=== PATIENT | male | born 1965 | race Caucasian/White ===

== ENCOUNTER 2016-06-24 08:08 | Emergency (ER) | payer OTHER ==
[~2016-06-24] VITALS: Ht 180.3 cm; Wt 83.9 kg
[2016-06-24 09:41] LABS: ABSOLUTE BASOPHIL COUNT 0 /CUMM (0.0-0.2); ABSOLUTE EOSINOPHIL COUNT 0.1 /CUMM (0.0-0.7); ABSOLUTE GRANULOCYTE CT 4.8 /CUMM (1.4-6.5); ABSOLUTE LYMPH COUNT 1.2 /CUMM (1.2-3.4); ABSOLUTE MONOCYTE COUNT 0.5 /CUMM (0.10-0.60); BASOPHIL % 0.4 % (0.0-2.0); EOSINOPHIL % 1.9 % (0-5); GRANULOCYTE % 71.9 % (42.2-75.2); HEMATOCRIT 41.6 % (42-52); MEAN CORPUSCULAR HGB 31.8 PG (27.0-31.0); MEAN CORPUSCULAR HGB CONC 33.5 G/DL (33.0-37.0); MEAN CORPUSCULAR VOLUME 94.9 FL (80.0-94.0); MEAN PLATELET VOLUME 7.2 FL (7.4-10.4); PLATELET COUNT 390 /CUMM (130-400); RBC DISTRIBUTION WIDTH 12.8 % (11.5-14.5); RED BLOOD CELL CT 4.38 /CUMM (4.70-6.10); WHITE BLOOD CELL COUNT 6.7 /CUMM (4.8-10.8)
[2016-06-24] MEDS ORDERED: ATORVASTATIN CA10 M1 PO (09:51)
[2016-06-24] MEDS ORDERED: VALACYCLOVIR1000 MG PO (09:52)
[2016-06-24] MEDS ORDERED: ANDROGEL75 G1 TOP (09:52)
[2016-06-24] MEDS ORDERED: DESCOVY 200-251 EACH PO (09:53)
[2016-06-24] MEDS ORDERED: TIVICAY50 M1 PO (09:53)
[2016-06-24] MEDS ORDERED: DILANTIN100 M1 PO (09:53)
[2016-06-24] MEDS ORDERED: KETOPROFEN200 MG PO (09:54)
[2016-06-24] MEDS ORDERED: ASPIRIN81 M4 PO (09:54)
[2016-06-24] MEDS ORDERED: MOXIFLOXACIN H400 M2 PO (09:55)
[2016-06-24] MEDS ORDERED: OXANDROLONE10 MG PO (09:55)
--- NOTE | 2016-06-24 10:20 | ED NEURO DEFICIT/STROKE ---
See Addendum History of Present Illness General Chief Complaint: Neuro Symptoms/ Deficit Stated Complaint: RT SIDED NUMBNESS Source: patient, family, old records Exam Limitations: no limitations Vital Signs & Intake/Output Vital Signs & Intake/Output Vital Signs Date Time Temp Pulse Resp B/P Pulse O2 O2 Flow FiO2 Ox Delivery Rate 06/24 1216 97.3 76 18 143/83 93 Room Air 06/24 0811 97.8 101 16 122/80 94 Room Air Allergies Coded Allergies: NO KNOWN ALLERGIES (05/09/12) Reconcile Medications Aspirin (Aspirin*) 81 MG TAB.CHEW 1 TAB PO DAILY HEART HEALTH (Reported) Atorvastatin Calcium 10 MG TABLET 1 TAB PO DAILY CHOLESTEROL (Reported) Dolutegravir Sodium (Tivicay) 50 MG TABLET 1 TAB PO DAILY HIV (Reported) Emtricitabine/Tenofov Alafenam (Descovy 200-25 MG Tablet) 200 MG-25 MG TABLET 1 TAB PO DAILY HIV (Reported) Ketoprofen 200 MG CAP24H.PEL 1 TAB PO DAILY PRN UNKNOWN (Reported) Moxifloxacin HCl 400 MG TABLET 1 TAB PO DAILY ANTIBIOTIC, INFECTION (Reported ) Oxandrolone 10 MG TABLET 1 TAB PO DAILY STEROID (Reported) Phenytoin (Dilantin) 100 MG CAPSULE 3 CAP PO BID SEIZURES (Reported) Testosterone (Androgel) 20.25/1.25 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 PT STATES THIS HAPPENED "ONCE BEFORE AND NOTHING WAS FOUND". 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 PT STATES THE NUMBNESS IS R SIDED FACE, R ARM AND DOWN R LEG. SPEAKING CLEARLY WITH NO DEFICITS NOTED. SPEECH CLEAR. NO OTHER DEFICIT NOTED. PT WEARING MASK DUE TO CURRENT TX OF PNEUMONIA. Triage Nurses Notes Reviewed? yes HPI: This is a 50-year-old male with past medical history significant for HIV (last CD4 count 704 and an undetectable viral load), seizure disorder (last seizure over 7 years ago when his medication was being titrated down), Mancuso's palsy in 2012, who comes in for chief complaint of right-sided numbness. He stated symptoms started this morning at 7:30, numbness started in the fingers of his right lower extremity progressed up and gradually encompassed the shoulders and the right side of his face and his right lower extremity as well. His trunk is spared. He denied any other associated symptoms including facial droop, slurring, loss of consciousness, dizziness, gait instability, decreased range of motion, loss of vision, decreased strength, or seizure. He does endorse a pneumonia that he is currently being treated for with moxifloxacin. It is causing mild shortness of breath but that symptom has been constant over the past few days. Patient denies any recent travel, exotic ingestions, or sick contacts. Only change to his regimen is the addition of his antibiotic. Of note he saw his neurologist 5 days ago for workup of similar complaints in 2016. Apparently about a year ago patient had a similar episode of right-sided numbness. Subsequent workup started in March at [facility]. He has had CT angiogram of the head, TTE, FREDERICK and full neurologic workup. He states a small aneurysm was found on an geode, however it was stable and neurosurgical intervention was unnecessary. Additionally, FREDERICK showed a small PFO. This information was corroborated by Dr. Cunningham who was able to access patient's visit notes at [place]. Past History Travel History Traveled to [place] past 21 day No Medical History Any Pertinent Medical History? 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 No Review of Systems Review of Systems Constitutional: Denies: chills, diaphoresis, fever, malaise, weakness. EENTM: Denies: blurred vision, double vision, visual changes. Respiratory: Reports: cough, short of breath, sputum production. Cardiovascular: Denies: chest pain, orthopena, palpitations. GI: Reports: constipation. Denies: abdominal pain, diarrhea. Genitourinary: Denies: discharge, frequency. Musculoskeletal: Reports: no symptoms. Skin: Reports: no symptoms. Neurological/Psychological: Reports: numbness. Denies: ataxia, cognitive dysfunction, confusion, depressed, dementia, headache, paresthesia, petit mal seizures, tingling, tremors, tonic- clonic seizures, unable to move lower ext, unable to move upper ext, weakness. Physical Exam Physical Exam General Appearance: well developed/nourished, no apparent distress, alert, awake , comfortable Head: atraumatic, normal appearance, patient does have decreased pupillary reflex and right side, however he states this is his baseline as he has childhood slow growing tumor that is being addressed elsewhere Ears, Nose, Throat: normal ENT inspection, pharynx normal, nasal congestion, no pharyngeal erythema, tonsillar exudate, or acute infection oral cavity appreciated Neck: supple, full range of motion, trachea midline, no lymphadenopathy appreciated Respiratory: patient has some diminished breath sounds on the right upper lobe. crackles, wheezes, or egophony. Cardiovascular: regular rate/rhythm Gastrointestinal: soft, non-tender Back: normal inspection Extremities: normal range of motion Psychiatric: awake, alert, oriented x 3 Cranial Nerves: normal hearing, normal speech, patient does have any facial asymmetry, droop, weakness, extraocular motor movements intact, no evidence of hearing deficit, no tongue deviation, uvula midline. Coordination/Gait: normal finger to nose, normal gait, negative Romberg Motor/Sensory: sensory deficit, patient endorses subjective decreased sensation to light and deep palpation between the upper extremities,lower extremities, and 2 sides of his face. He states that sensation is blunted on his right side. Sharp touch seems to be equal on both sides. Negative Babinski. Core Measures CVA/TIA Diagnosis: No Severe Sepsis Present: No Septic Shock Present: No Progress Differential Diagnosis: Mancuso's Palsy, electrolyte imbalance, intracranial Hem., intracranial mass/tumor, migraine BEATTY, stroke, subarachnoid Hem., vertebrobasilar insuff. Plan of Care: Orders Procedure Date/time Status COMPREHENSIVE METABOLIC PANEL 06/25 903 Complete CBC WITHOUT DIFFERENTIAL 06/25 903 Complete Laboratory Tests 06/24/16 0927: Anion Gap 11, Estimated GFR > 60, BUN/Creatinine Ratio 10.0, Glucose 93, Calcium 9.6, Total Bilirubin 0.5, AST 21, ALT 36, Alkaline Phosphatase 75, Total Protein 6.8, Albumin 3.6, Globulin 3.2, Albumin/Globulin Ratio 1.1, CBC w Diff NO MAN DIFF REQ, RBC 4.38 L, MCV 94.9 H, MCH 31.8 H, RDW 12.8, MPV 7.2 L, Gran % 71.9, Lymphocytes % 17.7 L, Monocytes % 8.1, Eosinophils % 1.9, Basophils % 0.4 , Absolute Granulocytes 4.8, Absolute Lymphocytes 1.2, Absolute Monocytes 0.5, Absolute Eosinophils 0.1, Absolute Basophils 0, PUBS MCHC 33.5 Given patient's presentation of acute right-sided numbness, this time we'll proceed with routine blood work, and a CT angiogram of the head to evaluate his intracranial aneurysm. CT scan came back showing no acute infarct or bleed. Aneurysm noted and stable. At this time we informed patient to follow-up with his neurologist outpatient. He is onboard with the plan. (RHINA CHAVEZ,SHONA) Initial ED EKG: none Departure Departure Disposition: HOME OR SELF CARE Condition: Stable Clinical Impression Primary Impression: TIA (transient ischemic attack) Referrals: UNKNOWN (PCP/Family) Additional Instructions: If your symptoms worsen, or you have facial droop, slurring, unilateral weakness , as we spoke, return back to the ED promptly. It is very important that you call your neurologist today and inform them of ED visit and the workup done. Ensure timely follow-up with your PCP, your infectious disease doctor, and continue treatment for your pneumonia. Departure Forms: Customer Survey General Discharge Information
--- NOTE | 2016-06-24 11:41 | CT SCAN REPORT ---
EXAMINATION: CT ANGIOGRAM HEAD CLINICAL INFORMATION: Right-sided numbness. Assess for stroke, intracranial masses and aneurysm. COMPARISON: CT scan of the head 11/12/2015. TECHNIQUE: A noncontrast axial CT scan of the head was obtained. Test bolus sequences followed by intravenous administration 95 mL of Optiray 350 intravenous contrast. Helical imaging was performed in the axial plane from the mediastinum to the skull vertex. Delayed postcontrast imaging of the head was also performed. The data was processed at the cardiac cath technologist's workstation for generation of MIP sequences. Three-dimensional volume rendered reformatted images were also generated at an offline 3-D workstation. DLP: 1715.83 mGy-cm. FINDINGS: CT HEAD: There is no evidence of acute intracranial hemorrhage or territorial infarction. No abnormal mass-effect or midline shift is seen. Benjamin to white matter differentiation is well preserved. No extra-axial fluid collections are identified. There is no abnormal enhancement. The ventricles are normal in size. There is no abnormal attenuation within the brain parenchyma. The osseous structures and soft tissues are normal. The mastoid air cells and visualized portions of the paranasal sinuses are well-aerated. The intracranial vasculature corresponding to the anterior and posterior circulation is normal. No significant stenoses or occlusions are seen. No aneurysm or vascular malformation is identified. The visualized extracranial vessels appear normal. The venous sinuses opacify normally. 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 There is pneumatization of the left anterior clinoid process. There is normal opacification of the major intracranial vessels. No acute proximal large vessel occlusion, focal flow-limiting stenosis, or saccular intracranial aneurysm is identified. No abnormal parenchymal enhancement or regional oligemia is visualized. There is normal opacification of the dural venous sinuses. IMPRESSION: 1. There are no acute bleeds or territorial infarcts. 2. There are no masses or areas of abnormal enhancement. 3. 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
[2016-06-24 12:16] VITALS: BP 143/83
== END 2016-06-24 13:24 ==
LOC: ERH 08:08
PROVIDERS: Student in an Organized Health Care Education/Training Program
DX: G45.9 Transient cerebral ischemic attack, unspecified (principal)
CPT/HCPCS: Q9965